=== PATIENT | female | born 1965 | race Caucasian/White ===

== ENCOUNTER 2019-11-04 09:46 | Outpatient (CLI) | payer OTHER, SELFPAY ==
--- NOTE | 2019-11-04 09:57 | MM_ITS ---
WS: [id number] DIAGNOSTIC BILATERAL DIGITAL MAMMOGRAM WITH CAD RIGHT breast ultrasound, limited HISTORY: RT BREAST CYST COMPARISON: None available. TECHNIQUE: Bilateral craniocaudad, mediolateral oblique, and mediolateral views are submitted. Spot c ompression RIGHT CC. Computer aided detection utilized. Breast composition: The breasts are extremely dense, which lowers the sensitivity of mammography. Tiana asts are extremely dense. There are a few benign scattered calcifications within each breast. Triangu lar marker is placed in the upper outer quadrant of the RIGHT breast. There is no underlying abnormal ity identified. No distortion. RIGHT breast ultrasound, limited. Ultrasound is directed to the palpable abnormality, 10:00, 4 cm from the nipple. There is no solid o r cystic mass. No skin thickening. MM/[id number] IMPRESSION: BI-RADS: 2-Benign FOLLOW UP: 1 Year Follow-up LACK OF RADIOGRAPHIC EVIDENCE OF MALIGNANCY SHOULD NOT DELAY BIOPSY IF A CLINIC ALLY SUSPICIOUS MASS IS PRESENT.
== END 2019-11-04 09:47 | disposition home or self-care (01) ==
LOC: RADSHAW 09:56
PROVIDERS: PCP Family Medicine; Visit Provider Nurse Practitioner Family
DX: N60.01 Solitary cyst of right breast (principal)
CPT/HCPCS: 76642; 77066

== ENCOUNTER → 2020-11-25 10:18 | Outpatient (BNVA) | payer OTHER, SELFPAY | PROVIDERS: PCP Family Medicine; Visit Provider Obstetrics & Gynecology | DX: Z12.4 Encounter for screening for malignant neoplasm of cervix (principal) | CPT/HCPCS: 88175 ==